=== PATIENT | female | born 1975 | race American Indian/Alaskan Native ===

== ENCOUNTER 2019-12-24 12:18 | Emergency (ER) | payer MEDICARE, MEDICAID, OTHER, SELFPAY ==
[2019-12-24 12:24] VITALS: BP 114/73; PULSE 84; RESP 15; TEMP 36.7; O2SAT 100; BMI 32.1
--- NOTE | 2019-12-24 13:12 | ED_ITS ---
HPI - Ear Problem <KADIE Noland - Last Filed: 12/24/19 13:28> General Chief complaint: Ear Stated complaint: ears are draining Time Seen by Provider: 12/24/19 12:45 Source: patient Mode of arrival: Ambulatory Limitations: no limitations History of Present Illness HPI Narrative: This is a 44 year female, nonsmoker, who presents to ED with chief complain of bilateral ear drainage and discomfort for last 4 days. Patient denies using Q-tips regularly but has been using after she experienced ear bloody ear drainage. Patient denies going into swimming pool or into water recently. Patient denies fever, chills, nausea or vomiting, history of diabetes or immunocompromise. Patient reports cold symptoms about a month ago with improvement. Patient reports decrease hearing. Patient reports throbbing bilateral ear discomfort with lymph nodes discomfort near bilateral years and cervical area. Related Data Previous Rx's Medication Instructions Recorded [id number] 4 drop EAR-BOTH Q6H 10 Days #10 ml 12/24/19 Allergies Allergy/AdvReac Type Severity Reaction Status Date / Time No Known Drug Allergies Allergy Verified 12/24/19 12:24 Review of Systems <KADIE Noland - Last Filed: 12/24/19 13:28> Review of Systems Narrative: General: Denies fever, chills, fatigue, malaise, sweats. HEENT: See HPI Respiratory: Denies dyspnea, cough, wheezing, hemoptysis, sputum. Cardiovascular: Denies chest pain, palpitations, orthopnea, edema. Gastrointestinal: Denies nausea, vomiting, abdominal pain, diarrhea, constipation, melena. : Denies dysuria, frequency, incontinence, hematuria, urinary retention. Musculoskeletal: Denies weakness, joint pain or bony pain. Skin: Denies rash, skin lesions, or other. Neurologic: Denies weakness, headache, numbness, change in speech, confusion, seizures, incoordination. Psychiatric: No concerning psychosocial issues. 12-point review of systems is negative except for those stated above. Patient History <KADIE Noland - Last Filed: 12/24/19 13:28> Medical History No significant past medical history (Acute) Surgical History No pertinent past surgical history (Acute) Social History Smoking Status: Never smoker Smoking Status: Never smoker Exam <KADIE Noland - Last Filed: 12/24/19 13:28> Narrative Exam Narrative: General appearance: well developed, well nourished, in no acute distress. Head: normocephalic, atraumatic, no scalp lesions, non-tender. ENT: Bilateral auditory canals with erythema, edema, serosanguineous drainage and tympanic membranes clear. Hearing grossly intact. Nose without bleeding, purulent discharge, septal hematoma or deviation. Turbinate without erythema or swelling. Facial sinuses nontender to palpate. Mucous membrane moist, no mucosal lesion. Throat without erythema, tonsillar hypertrophy or exudate. Uvula in midline, airway patent. Neck/Thyroid: neck supple, full range of motion, no visible masses or meningeal signs. No JVD, tender to palpate near bilateral tragus, anterior and posterior cervical lymph nodes. Skin: no suspicious rashes, lesions over visible areas. Warm and dry and appropriate color for ethnicity. Heart: no clubbing, no cyanosis, no edema. S1 and S2 normal. RRR w/o murmurs, clicks, or bruits. Lungs: Breathing even and unlabored. No stridor. No accessory muscles used. Able to speak in full sentences. Chest: normal shape and expansion. Abdomen: non-obese, non-distended. Neurologic: alert and oriented. Cognitive exam, UNEMPLOYMENT SPECIALIST and PNS grossly intact on informal exam. Psych: good eye contact, normal affect. Initial Vital Signs Initial Vital Signs: Vital Signs Temperature 98.1 F 12/24/19 12:24 Pulse Rate 84 12/24/19 12:24 Respiratory Rate 15 12/24/19 12:24 Blood Pressure 114/73 12/24/19 12:24 Pulse Oximetry 100 12/24/19 12:24 <Shivam Wilson DO - Last Filed: 12/24/19 14:18> Initial Vital Signs Initial Vital Signs: Vital Signs Temperature 98.1 F 12/24/19 12:24 Pulse Rate 84 12/24/19 12:24 Respiratory Rate 15 12/24/19 12:24 Blood Pressure 114/73 12/24/19 12:24 Pulse Oximetry 100 12/24/19 12:24 Scores <KADIE Noland - Last Filed: 12/24/19 13:28> GCS [place] coma scale eye opening: Spontaneous [place] coma scale verbal response: Orientated [place] coma scale motor response: Obey commands [place] coma scale total score: 15 Course <KADIE Noland - Last Filed: 12/24/19 13:28> Vital Signs Vital signs: Vital Signs - 8 hr 12/24/19 12:24 Temperature 98.1 F Pulse Rate 84 Respiratory Rate 15 Blood Pressure 114/73 Pulse Oximetry 100 <Shivam Wilson DO - Last Filed: 12/24/19 14:18> Vital Signs Vital signs: Vital Signs - 8 hr 12/24/19 12:24 Temperature 98.1 F Pulse Rate 84 Respiratory Rate 15 Blood Pressure 114/73 Pulse Oximetry 100 Medical Decision Making <KADIE Noland - Last Filed: 12/24/19 13:28> Differential Diagnosis Differential Diagnosis: Otitis media, otitis externa, URI Medical Records Medical records reviewed: Yes I reviewed the patient's medical records. MDM Narrative Medical decision making narrative: Patient has bilateral ear physical exam is consistent with otitis externa. TM is intact without obvious signs of infection at this time. Patient advised not to use Q-tips to clean her ears. Patient discharged to home with Cortisporin ear drops and advised to use 4 drops into each ear up to 4 times a day for next 10 days. Patient advised to follow-up with PCP next couple of days for re-evaluation and return precautions were discussed with the patient. Patient verbalized understanding and agrees with the treatment plan. Discharge Plan Departure Patient Disposition: Home Clinical Impression: Otitis externa Qualifiers: Otitis externa type: unspecified type Chronicity: acute Laterality: bilateral Qualified Code(s): H60.503 - Unspecified acute noninfective otitis externa, bilateral Discharge Date/Time: 12/24/19 13:40 Instructions: DI for Otitis Externa Activity Restrictions/Additional Instructions: You have been diagnosed with [bilateral otitis externa.]. What to do: *Take your medications as directed. Please start using ear drops today as soon as you receive this medication from the pharmacy. Four drops in each ear 4 times a day for next 10 days. You can use [id number]-kxa-jfmdzcu Tylenol and or ibuprofen as needed for discomfort. Please keep your ears dry while you're treating for ear infection. This medication has been transmitted to [facility]. *Follow up with your primary care provider in 2-3 days, call for an appointment. Please contact previous Dr. Ceron office. Let them know you were seen in the ED and that we asked you to be seen in follow up. *Return to ED if you have any new, worsening, or concerning symptoms, such as [fever, worsening pain, drainage, chest pain, breathing difficulty, unable to tolerate fluids, hearing difficulty or any acute concerns]. Prescriptions: New zzdjrnto-rxatjnttz-JQ 3.5-10,000-1 mg/mL-unit/mL-% drops,suspension 4 drop EAR-BOTH Q6H 10 Days Qty: 10 RF: 0 <Shivam Wilson, DO - Last Filed: 12/24/19 14:18> Sign Out Provider Sign Out Attestation: Dr Wilson Co-Sign Statement: I was available for consultation during this patient's emergency department visit. This chart is signed by myself for administrative purposes only. I did not have direct contact with this patient during this visit. They were seen independently by the APC.
== END 2019-12-24 13:40 | disposition home or self-care (01) ==
PROVIDERS: Emergency Provider Nurse Practitioner Family
DX: H60.503 Unspecified acute noninfective otitis externa, bilateral (principal)
CPT/HCPCS: 99281; 99283

== ENCOUNTER 2019-12-25 16:00 | Emergency (ER) | payer MEDICARE, MEDICAID, OTHER, SELFPAY ==
[2019-12-25 16:12] VITALS: BP 135/71; PULSE 98; RESP 15; TEMP 36.8; O2SAT 99
--- NOTE | 2019-12-25 17:14 | PC.NURSE ---
report was sick for a month, ear congestion yesterday, today with drainage. denies fever at home, denies vomiting. awaiting for pending disposition.
--- NOTE | 2019-12-25 22:30 | ED.EAR ---
HPI - Ear Problem <KADIE Noland - Last Filed: 12/25/19 22:44> General Chief complaint: Ear Stated complaint: Both Ears Pain Time Seen by Provider: 12/25/19 16:29 Source: patient Mode of arrival: Ambulatory Limitations: no limitations History of Present Illness HPI Narrative: This is a 44 year female, occasional smoker, who presents to ED with worsening bilateral ear pain since her visit to ED yesterday. Patient was diagnosed with otitis externa in bilateral years and discharged to home with Cortisporin ear drops yesterday. Patient reports she has used about 5 doses before coming into ED. patient reports she has been using Tylenol and Motrin for discomfort and last dose was around noon and hearing has not been improving as well. Patient reports her current pain is 9/10. Patient denies fever, chills, nausea or vomiting. Patient denies history of diabetes or immunocompromised. Patient denies recent ear infection prior her visit to ED yesterday. Denies visiting to swimming pool. Related Data Previous Rx's Medication Instructions Recorded [id number] 4 drop EAR-BOTH Q6H 10 Days #10 ml 12/24/19 amoxicillin-pot clavulanate 1 tab PO BID #20 tab 12/25/19 [Augmentin] Allergies Allergy/AdvReac Type Severity Reaction Status Date / Time No Known Drug Allergies Allergy Verified 12/25/19 16:15 Review of Systems <KADIE Noland - Last Filed: 12/25/19 22:44> Review of Systems Narrative: General: Denies fever, chills, fatigue, malaise, sweats. HEENT: See HPI Respiratory: Denies dyspnea, cough, wheezing, hemoptysis, sputum. Cardiovascular: Denies chest pain, palpitations, orthopnea, edema. Gastrointestinal: Denies nausea, vomiting, abdominal pain, diarrhea, constipation, melena. Skin: Denies rash, skin lesions, or other. Neurologic: Denies weakness, headache, numbness, change in speech, confusion, seizures, incoordination. Patient History <KADIE Noland - Last Filed: 12/25/19 22:44> Medical History No significant past medical history (Acute) Surgical History No pertinent past surgical history (Acute) Social History Smoking Status: Current some day smoker Smoking Status: Current some day smoker tobacco type: cigarettes alcohol intake frequency: 0-2 drinks per day Substance Use Type: does not use Exam <KADIE Noland - Last Filed: 12/25/19 22:44> Narrative Exam Narrative: General appearance: well developed, well nourished, in no acute distress. Head: normocephalic, atraumatic, no scalp lesions, non-tender. ENT: Bilateral auditory canals with purulent discharge worse in right ear with erythematous canal. Tympanic membrane redness and dull appearance worsen right-side. Hearing grossly intact. Nose without bleeding, purulent discharge, septal hematoma or deviation. Turbinate without erythema or swelling. Facial sinuses nontender to palpate. Mucous membrane moist, no mucosal lesion. Throat without erythema, tonsillar hypertrophy or exudate. Uvula in midline, airway patent. Neck/Thyroid: neck supple, full range of motion, no visible masses or meningeal signs. No JVD, non-tender without lymphadenopathy, no significant tenderness to palpate bilateral tragus. Skin: no suspicious rashes, lesions over visible areas. Warm and dry and appropriate color for ethnicity. Heart: no clubbing, no cyanosis, no edema. Lungs: Breathing even and unlabored. No stridor. No accessory muscles used. Able to speak in full sentences. Chest: normal shape and expansion. Abdomen: non-obese, non-distended. Neurologic: alert and oriented. Cognitive exam, CLINICAL NURSE LEADER and PNS grossly intact on informal exam. Psych: good eye contact, normal affect. Initial Vital Signs Initial Vital Signs: Vital Signs Temperature 98.2 F 12/25/19 16:12 Pulse Rate 98 H 12/25/19 16:12 Respiratory Rate 15 12/25/19 16:12 Blood Pressure 135/71 12/25/19 16:12 Pulse Oximetry 99 12/25/19 16:12 <Shivam Wilson DO - Last Filed: 12/26/19 06:58> Initial Vital Signs Initial Vital Signs: Vital Signs Temperature 98.2 F 12/25/19 16:12 Pulse Rate 98 H 12/25/19 16:12 Respiratory Rate 15 12/25/19 16:12 Blood Pressure 135/71 12/25/19 16:12 Pulse Oximetry 99 12/25/19 16:12 Scores <KADIE Noland - Last Filed: 12/25/19 22:44> GCS [place] coma scale eye opening: Spontaneous [place] coma scale verbal response: Orientated [place] coma scale motor response: Obey commands [place] coma scale total score: 15 Course <BRITTANY NolandP - Last Filed: 12/25/19 22:44> Vital Signs Vital signs: Vital Signs - 8 hr 12/25/19 16:12 Temperature 98.2 F Pulse Rate 98 H Respiratory Rate 15 Blood Pressure 135/71 Pulse Oximetry 99 <Shivam Wilson DO - Last Filed: 12/26/19 06:58> Vital Signs Vital signs: Vital Signs - 8 hr 12/25/19 16:12 Temperature 98.2 F Pulse Rate 98 H Respiratory Rate 15 Blood Pressure 135/71 Pulse Oximetry 99 Medical Decision Making <KADIE Noland - Last Filed: 12/25/19 22:44> Differential Diagnosis Differential Diagnosis: Otitis media, otitis externa, malignant otitis externa Medical Records Medical records reviewed: Yes I reviewed the patient's medical records. Lab Data Lab results reviewed: Yes I reviewed the patient's lab results. Labs: Point of Care Testing Glucose POC 98 Point of care testing: Point of Care Testing Glucose POC 98 MDM Narrative Medical decision making narrative: Patient was diagnosed with otitis externa yesterday and return to ED today with increasing ear pain and not improving hearing after she had used to 5 times Corticosporin ear drops. Your exam is consistent with otitis externa with purulent discharge and erythema without significant swelling. Tympanic membrane also appears to be erythema and dull in appearance. Patient advised continue use ear drops and oral antibiotic medication, Augmentin, has been added for 10 day course. Patient advised to follow-up with PCP and ENT specialist if symptoms persist and return precautions were discussed with the patient. Patient verbalized understanding and agrees with the treatment plan. Patient also advised to use enkz-azh-fktfogo Tylenol and or Motrin as needed for discomfort. <Shivam Wilson DO - Last Filed: 12/26/19 06:58> Lab Data Labs: Point of Care Testing Glucose POC 98 Point of care testing: Point of Care Testing Glucose POC 98 Discharge Plan Departure Patient Disposition: Home Clinical Impression: Otitis externa Qualifiers: Otitis externa type: unspecified type Chronicity: acute Laterality: bilateral Qualified Code(s): H60.503 - Unspecified acute noninfective otitis externa, bilateral Otitis media Qualifiers: Otitis media type: unspecified Chronicity: acute Qualified Code(s): H66.90 - Otitis media, unspecified, unspecified ear Discharge Date/Time: 12/25/19 17:37 Activity Restrictions/Additional Instructions: You have been diagnosed with [otitis media and otitis externa. Right ear is worse than left side. Your blood glucose test was normal.]. What to do: *Take your medications as directed. Please start taking Augmentin twice a day for next 10 days. Continue to take Tylenol and or Motrin as needed for discomfort and the ear drops. Please avoid water entering to ear canal during the treatment. Augmentin has been transmitted to [facility]. *Follow up with your primary care provider in 2-3 days, call for an appointment. Let them know you were seen in the ED and that we asked you to be seen in follow up. *Return to ED if you have any new, worsening, or concerning symptoms, such as [worsening pain, increasing drainage, pain, fever, redness spreading to face/jaw. Chest pain, breathing difficulty or any acute concerns.]. Prescriptions: New amoxicillin-pot clavulanate [Augmentin] 875-125 mg tablet 1 tab PO BID Qty: 20 RF: 0 No Action [id number]-[id number] 3.5-10,000-1 mg/mL-unit/mL-% drops,suspension 4 drop EAR-BOTH Q6H 10 Days Qty: 10 RF: 0 <Shivam Wilson DO - Last Filed: 12/26/19 06:58> Sign Out Provider Sign Out Attestation: Dr Wilson Co-Sign Statement: I was available for consultation during this patient's emergency department visit. This chart is signed by myself for administrative purposes only. I did not have direct contact with this patient during this visit. They were seen independently by the APC.
== END 2019-12-25 17:37 | disposition home or self-care (01) ==
PROVIDERS: Emergency Provider Nurse Practitioner Family
DX: H60.503 Unspecified acute noninfective otitis externa, bilateral (principal); H66.90 Otitis media, unspecified, unspecified ear
CPT/HCPCS: 82962; 99281; 99283

== ENCOUNTER 2022-05-06 17:21 | Emergency (ER) | payer MEDICARE, MEDICAID, OTHER, SELFPAY ==
[2022-05-06] VITALS (13 sets, daily range): BP systolic 108–148; BP diastolic 53–74; PULSE 75–103; RESP 11–25; TEMP 36.8; O2SAT 94–99
[2022-05-06] MEDS: ONDANSETRON 4 MG/2 ML INJ IV (17:55)
[2022-05-06 18:07] LABS: Add Manual Diff / Slide Review NO; Basophils Absolute Auto 100 /uL (0-100); Eosinophils Absolute Auto 100 /uL (0-450); Eosinophils Percent Auto 1.4 % (2-4); Hematocrit 32.7 % (36-46); Hemoglobin 10.7 g/dL (12.0-16.0); Lymphocytes Absolute Auto 1300 /uL (1100-4500); Lymphocytes Percent Auto 14.3 % (25-40); Mean Corpuscular HGB Conc 32.8 % (30-36); Mean Corpuscular Hemoglobin 27.2 PG (26-34); Mean Corpuscular Volume 82.9 fL (80-100); Monocytes Absolute Auto 500 /uL (0-900); Monocytes Percent Auto 5.6 % (3-14); Neutrophils Absolute Auto 7200 /uL (1500-7000); Neutrophils Percent Auto 77.7 % (50-75); Platelet Count 414 X10^3/uL (150-400); Red Blood Cell Count 3.94 X10^6/uL (4.0-5.2); Red Cell Distribution Width 15.8 % (11.6-14.8); White Blood Cell Count 9.3 X10^3/uL (4.5-11.0)
[2022-05-06 18:09] LABS: Alanine Aminotransferase 25 IU/L (<35); Albumin 4.8 g/dL (3.5-5.0); Albumin Globulin Ratio 1.2 (1.0-2.8); Alkaline Phosphatase 115 U/L (38-126); Aspartate Aminotransferase 53 IU/L (14-36); BUN Creatinine Ratio 9.1 (6-22); Bilirubin Total 0.4 mg/dL (0.2-1.3); Blood Urea Nitrogen 13 mg/dL (7-17); Calcium 8.7 mg/dL (8.4-10.2); Carbon Dioxide 29 mmol/L (22-32); Chloride 106 mmol/L (98-107); Estimated Glomerular Filt Rate 45 mL/min (>60); Ethanol (ETOH) < 10 mg/dL; Globulin 3.9 g/dL (1.7-4.1); Glucose 161 mg/dL (70-100); HEMOLYSIS < 15 (0-50); Lipase 120 U/L (23-300); Potassium 3.5 mmol/L (3.4-5.1); Sodium 145 mmol/L (137-145); Total Protein 8.7 g/dL (6.3-8.2)
[2022-05-06 18:30] LABS: Pregnancy Test Serum,Qual Negative (Negative)
--- NOTE | 2022-05-06 18:34 | ED.SYNCOPE ---
HPI - Syncope <Rios Guallpa MD - Last Filed: 05/13/22 05:14> General Chief Complaint: Syncope Stated Complaint: Syncope Time Seen by Provider: 05/06/22 17:38 Source: patient and family Mode of arrival: Ambulatory History of Present Illness HPI narrative: Patient brought in by ambulance for episode of syncope. Daughter is at bedside. Patient states feeling much better now. Patient denies any chest pain palpitations headache. No dyspnea. 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 She was out care from 1:45 p.m. until about 5:00 p.m.. She states she was drinking water. Was not sweating. She came inside the house to use the bathroom. She sat down on the commode. She felt lightheaded. Denied any palpitations chest pain headache or any pain or discomfort. She states she must have fell asleep. Her family was knocking at the bathroom door. She was able to get up and still felt a little lightheaded and answer the door. EMS then was called. Please see EMS run sheet for vitals/data. Patient denies any history of heart attack strokes or diabetes. Denies any drug use or alcohol abuse. She is awake alert oriented x4. Clear speech. Has not had any IV fluids, IV fluids from EMS still hanging on full but not flowing. Denies any fall or injury from syncopal episode. Never had this happen before. Patient denies any chest pain or dyspnea during yd work. No recent illness fever chills cough cold congestion nausea vomiting diarrhea or any fluid loss. No urinary complaints. No bloody or black stools recently. No history of cardiac arrhythmia. No history of seizures. Patient was not postictal. She was awake alert oriented x4 when she was was awoken by family in the bathroom Related Data Previous Rx's Medication Instructions Recorded amoxicillin 875 mg-potassium 1 tab PO BID #20 tabs 12/25/19 clavulanate 125 mg tablet (Augmentin) ofloxacin 0.3 % ear drops 10 drop otic (ear) DAILY 7 days #5 12/28/19 mL cephalexin 500 mg capsule 500 mg PO BID 5 days #10 caps 05/11/22 Allergies Allergy/AdvReac Type Severity Reaction Status Date / Time No Known Drug Allergies Allergy Verified 05/06/22 17:29 Review of Systems <Rios Guallpa MD - Last Filed: 05/13/22 05:14> Review of Systems Narrative: GENERAL: Denies chills, fatigue, malaise, fever, sweats. HEENT: Denies sinus pain, ear pain, sore throat RESPIRATORY: Denies dyspnea, cough CARDIOVASCULAR: Denies chest pain, palpitations GASTROINTESTINAL: Denies nausea, vomiting, abdominal pain : Denies dysuria, frequency, hematuria MUSCULOSKELETAL: denies muscle or bony pain SKIN: Denies rash, skin lesions NEUROLOGIC: Denies weakness, numbness, positive for dizziness/syncope ROS Unobtainable: All systems reviewed & are unremarkable except as noted in HPI and below Patient History <Rios Guallpa MD - Last Filed: 05/13/22 05:14> Medical History (Updated 05/06/22 @ 22:27 by Rios Guallpa MD) No significant past medical history Surgical History No pertinent past surgical history Social History Smoking Status: Current some day smoker Smoking Status: Current some day smoker tobacco type: cigarettes alcohol intake frequency: 0-2 drinks per day Substance Use Type: former substance user Exam <Rios Guallpa MD - Last Filed: 05/13/22 05:14> Narrative Exam Narrative: GENERAL: in no distress, not toxic not dyspneic HEAD: Normocephalic. EYES: Pupils equal round No scleral icterus. ENT: Mucous membranes moist. NECK: Trachea midline. CARDIOVASCULAR: Regular rate and rhythm without murmurs RESPIRATORY: Clear to auscultation. Breath sounds equal bilaterally. No wheezes, rales, or rhonchi. 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 Normal external rectal exam. No blood or black stool on glove. Hemoccult negative. EXTREMITIES: No gross deformities. BACK: No flank tenderness. NEURO: AOx4. Clear speech no facial droop light touch intact to bilateral face hands with strong equal cloud developer. Negative pronator drift. SKIN: Warm and dry PSYCH: Not anxious, is cooperative Initial Vital Signs Initial Vital Signs: Vital Signs Temperature 98.2 F 05/06/22 17:27 Pulse Rate 99 H 05/06/22 17:27 Respiratory Rate 16 05/06/22 17:27 Blood Pressure 137/72 05/06/22 17:27 Pulse Oximetry 99 05/06/22 17:27 Oxygen Delivery Method 05/06/22 17:27 <Kenyatta Brody DO - Last Filed: 05/11/22 19:10> Initial Vital Signs Initial Vital Signs: Vital Signs Temperature 98.2 F 05/06/22 17:27 Pulse Rate 99 H 05/06/22 17:27 Respiratory Rate 16 05/06/22 17:27 Blood Pressure 137/72 05/06/22 17:27 Pulse Oximetry 99 05/06/22 17:27 Oxygen Delivery Method 05/06/22 17:27 Course <Rios Guallpa MD - Last Filed: 05/13/22 05:14> Course Course Narrative: No new issues during course of stay Orders Ordered: Discontinued Medications Diphenhydramine HCl (Diphenhydramine 50 Mg/Ml Vial) 12.5 mg IV NOW ONE Stop: 05/06/22 21:13 Last Admin: 05/06/22 21:15 Dose: 12.5 mg Documented By: AT Sodium Chloride (Normal Saline 0.9%) 1,000 mls @ 1,000 mls/hr IV BOLUS ONE Stop: 05/06/22 19:32 Last Infusion: 05/06/22 20:48 Dose: 0 mls/hr Documented By: Admin: 05/06/22 19:17 Dose: 1,000 mls/hr Documented By: AT Sodium Chloride (Normal Saline 0.9%) 1,000 mls @ 1,000 mls/hr IV BOLUS ONE Stop: 05/06/22 21:51 Last Infusion: 05/06/22 22:35 Dose: 0 mls/hr Documented By: Admin: 05/06/22 20:59 Dose: 1,000 mls/hr Documented By: AT Methylprednisolone (Methylprednisolone 125 Mg/2 Ml Vial) 125 mg IV NOW ONE Stop: 05/06/22 21:13 Last Admin: 05/06/22 21:15 Dose: 125 mg Documented By: AT Ondansetron HCl (Ondansetron 4 Mg/2 Ml Inj) 4 mg IV NOW ONE Stop: 05/06/22 17:50 Last Admin: 05/06/22 17:55 Dose: 4 mg Documented By: RLS Reevaluation(s) Reevaluation #1: Reviewed results with patient and family. Patient feeling much better after IV fluids and Zofran. Had 2 L of normal saline. Otherwise laboratory studies/urinalysis does show some signs of dehydration. May have caused her syncopal episode. Return precautions reviewed with them. They desire discharge home Time: 22:23 Vital Signs Vital signs: Vital Signs - 8 hr 05/06/22 17:27 05/06/22 18:55 05/06/22 18:00 Temperature 98.2 F Pulse Rate 99 H 89 Pulse Rate [Orthostatic Lying] 102 H Pulse Rate [Orthostatic Sitting] 99 H Pulse Rate [Orthostatic Standing] 103 H Respiratory Rate 16 18 Blood Pressure 137/72 129/74 Blood Pressure [Orthostatic Lying] 148/73 H Blood Pressure [Orthostatic Sitting] 142/69 H Blood Pressure [Orthostatic Standing] 137/63 Pulse Oximetry 99 99 Oxygen Delivery Method Room Air Room Air 05/06/22 18:56 05/06/22 19:00 05/06/22 19:00 Temperature Pulse Rate 86 87 Pulse Rate [Orthostatic Lying] Pulse Rate [Orthostatic Sitting] Pulse Rate [Orthostatic Standing] Respiratory Rate 16 Blood Pressure 132/65 Blood Pressure [Orthostatic Lying] Blood Pressure [Orthostatic Sitting] Blood Pressure [Orthostatic Standing] Pulse Oximetry 96 94 Oxygen Delivery Method 05/06/22 19:30 05/06/22 19:30 05/06/22 20:00 Temperature Pulse Rate 79 Pulse Rate [Orthostatic Lying] Pulse Rate [Orthostatic Sitting] Pulse Rate [Orthostatic Standing] Respiratory Rate 11 L Blood Pressure 108/54 L 115/55 L Blood Pressure [Orthostatic Lying] Blood Pressure [Orthostatic Sitting] Blood Pressure [Orthostatic Standing] Pulse Oximetry 95 Oxygen Delivery Method 05/06/22 20:00 05/06/22 20:30 05/06/22 20:30 Temperature Pulse Rate 75 81 Pulse Rate [Orthostatic Lying] Pulse Rate [Orthostatic Sitting] Pulse Rate [Orthostatic Standing] Respiratory Rate 13 14 Blood Pressure 112/53 L Blood Pressure [Orthostatic Lying] Blood Pressure [Orthostatic Sitting] Blood Pressure [Orthostatic Standing] Pulse Oximetry 97 96 Oxygen Delivery Method 05/06/22 21:00 05/06/22 21:00 05/06/22 21:30 Temperature Pulse Rate 91 H 101 H Pulse Rate [Orthostatic Lying] Pulse Rate [Orthostatic Sitting] Pulse Rate [Orthostatic Standing] Respiratory Rate 24 Blood Pressure 131/71 Blood Pressure [Orthostatic Lying] Blood Pressure [Orthostatic Sitting] Blood Pressure [Orthostatic Standing] Pulse Oximetry 96 97 Oxygen Delivery Method Room Air Room Air 05/06/22 21:31 05/06/22 21:31 05/06/22 22:00 Temperature Pulse Rate 86 Pulse Rate [Orthostatic Lying] Pulse Rate [Orthostatic Sitting] Pulse Rate [Orthostatic Standing] Respiratory Rate 15 Blood Pressure 124/56 L 130/63 Blood Pressure [Orthostatic Lying] Blood Pressure [Orthostatic Sitting] Blood Pressure [Orthostatic Standing] Pulse Oximetry 96 Oxygen Delivery Method 05/06/22 22:00 Temperature Pulse Rate 84 Pulse Rate [Orthostatic Lying] Pulse Rate [Orthostatic Sitting] Pulse Rate [Orthostatic Standing] Respiratory Rate 11 L Blood Pressure Blood Pressure [Orthostatic Lying] Blood Pressure [Orthostatic Sitting] Blood Pressure [Orthostatic Standing] Pulse Oximetry 96 Oxygen Delivery Method Room Air <Kenyatta Brody DO - Last Filed: 05/11/22 19:10> Orders Ordered: Discontinued Medications Diphenhydramine HCl (Diphenhydramine 50 Mg/Ml Vial) 12.5 mg IV NOW ONE Stop: 05/06/22 21:13 Last Admin: 05/06/22 21:15 Dose: 12.5 mg Documented By: AT Sodium Chloride (Normal Saline 0.9%) 1,000 mls @ 1,000 mls/hr IV BOLUS ONE Stop: 05/06/22 19:32 Last Infusion: 05/06/22 20:48 Dose: 0 mls/hr Documented By: Admin: 05/06/22 19:17 Dose: 1,000 mls/hr Documented By: AT Sodium Chloride (Normal Saline 0.9%) 1,000 mls @ 1,000 mls/hr IV BOLUS ONE Stop: 05/06/22 21:51 Last Infusion: 05/06/22 22:35 Dose: 0 mls/hr Documented By: Admin: 05/06/22 20:59 Dose: 1,000 mls/hr Documented By: AT Methylprednisolone (Methylprednisolone 125 Mg/2 Ml Vial) 125 mg IV NOW ONE Stop: 05/06/22 21:13 Last Admin: 05/06/22 21:15 Dose: 125 mg Documented By: AT Ondansetron HCl (Ondansetron 4 Mg/2 Ml Inj) 4 mg IV NOW ONE Stop: 05/06/22 17:50 Last Admin: 05/06/22 17:55 Dose: 4 mg Documented By: RLS Vital Signs Vital signs: Vital Signs - 8 hr 05/06/22 17:27 05/06/22 18:55 05/06/22 18:00 Temperature 98.2 F Pulse Rate 99 H 89 Pulse Rate [Orthostatic Lying] 102 H Pulse Rate [Orthostatic Sitting] 99 H Pulse Rate [Orthostatic Standing] 103 H Respiratory Rate 16 18 Blood Pressure 137/72 129/74 Blood Pressure [Orthostatic Lying] 148/73 H Blood Pressure [Orthostatic Sitting] 142/69 H Blood Pressure [Orthostatic Standing] 137/63 Pulse Oximetry 99 99 Oxygen Delivery Method Room Air Room Air 05/06/22 18:56 05/06/22 19:00 05/06/22 19:00 Temperature Pulse Rate 86 87 Pulse Rate [Orthostatic Lying] Pulse Rate [Orthostatic Sitting] Pulse Rate [Orthostatic Standing] Respiratory Rate 16 Blood Pressure 132/65 Blood Pressure [Orthostatic Lying] Blood Pressure [Orthostatic Sitting] Blood Pressure [Orthostatic Standing] Pulse Oximetry 96 94 Oxygen Delivery Method 05/06/22 19:30 05/06/22 19:30 05/06/22 20:00 Temperature Pulse Rate 79 Pulse Rate [Orthostatic Lying] Pulse Rate [Orthostatic Sitting] Pulse Rate [Orthostatic Standing] Respiratory Rate 11 L Blood Pressure 108/54 L 115/55 L Blood Pressure [Orthostatic Lying] Blood Pressure [Orthostatic Sitting] Blood Pressure [Orthostatic Standing] Pulse Oximetry 95 Oxygen Delivery Method 05/06/22 20:00 05/06/22 20:30 05/06/22 20:30 Temperature Pulse Rate 75 81 Pulse Rate [Orthostatic Lying] Pulse Rate [Orthostatic Sitting] Pulse Rate [Orthostatic Standing] Respiratory Rate 13 14 Blood Pressure 112/53 L Blood Pressure [Orthostatic Lying] Blood Pressure [Orthostatic Sitting] Blood Pressure [Orthostatic Standing] Pulse Oximetry 97 96 Oxygen Delivery Method 05/06/22 21:00 05/06/22 21:00 05/06/22 21:30 Temperature Pulse Rate 91 H 101 H Pulse Rate [Orthostatic Lying] Pulse Rate [Orthostatic Sitting] Pulse Rate [Orthostatic Standing] Respiratory Rate 24 Blood Pressure 131/71 Blood Pressure [Orthostatic Lying] Blood Pressure [Orthostatic Sitting] Blood Pressure [Orthostatic Standing] Pulse Oximetry 96 97 Oxygen Delivery Method Room Air Room Air 05/06/22 21:31 05/06/22 21:31 05/06/22 22:00 Temperature Pulse Rate 86 Pulse Rate [Orthostatic Lying] Pulse Rate [Orthostatic Sitting] Pulse Rate [Orthostatic Standing] Respiratory Rate 15 Blood Pressure 124/56 L 130/63 Blood Pressure [Orthostatic Lying] Blood Pressure [Orthostatic Sitting] Blood Pressure [Orthostatic Standing] Pulse Oximetry 96 Oxygen Delivery Method 05/06/22 22:00 Temperature Pulse Rate 84 Pulse Rate [Orthostatic Lying] Pulse Rate [Orthostatic Sitting] Pulse Rate [Orthostatic Standing] Respiratory Rate 11 L Blood Pressure Blood Pressure [Orthostatic Lying] Blood Pressure [Orthostatic Sitting] Blood Pressure [Orthostatic Standing] Pulse Oximetry 96 Oxygen Delivery Method Room Air MDM - Syncope <Rios Guallpa MD - Last Filed: 05/13/22 05:14> Differential Diagnosis Differential diagnosis: Likely syncope due to orthostatic hypotension, vasovagal syncope, complete atrioventricular block, subarachnoid hemorrhage, pulmonary embolism and dehydration Lab Data Result diagrams: 05/06/22 17:24 05/06/22 17:24 Labs: Lab Results 05/06/22 05/06/22 05/06/22 Range/Units 17:24 17:24 17:24 WBC 9.3 (4.5-11.0) X10^3/uL RBC 3.94 L (4.0-5.2) X10^6/uL Hgb 10.7 L (12.0-16.0) g/dL Hct 32.7 L (36-46) % MCV 82.9 (80-100) fL MCH 27.2 (26-34) PG MCHC 32.8 (30-36) % RDW 15.8 H (11.6-14.8) % Plt Count 414 H (150-400) X10^3/uL Neut % (Auto) 77.7 H (50-75) % Lymph % (Auto) 14.3 L (25-40) % Dyer % (Auto) 5.6 (3-14) % Eos % (Auto) 1.4 L (2-4) % Baso % (Auto) 1.0 (0-2) % Neut # (Auto) 7200 H (1185-8258) /uL Lymph # (Auto) 1300 (3258-5775) /uL Dyer # (Auto) 500 (0-900) /uL Eos # (Auto) 100 (0-450) /uL Baso # (Auto) 100 (0-100) /uL D-Dimer (<230) ng/mL Sodium 145 (137-145) mmol/L Potassium 3.5 (3.4-5.1) mmol/L Chloride 106 (98-107) mmol/L Carbon Dioxide 29 (22-32) mmol/L BUN 13 (7-17) mg/dL Creatinine 1.43 H (0.52-1.04) mg/dL Estimated GFR 45 L (>60) mL/min BUN/Creatinine Ratio 9.1 (6-22) Glucose 161 H (70-100) mg/dL Calcium 8.7 (8.4-10.2) mg/dL Total Bilirubin 0.4 (0.2-1.3) mg/dL AST 53 H (14-36) IU/L ALT 25 (<35) IU/L Alkaline Phosphatase 115 (38-126) U/L Total Creatine Kinase (30-135) U/L CK-MB (CK-2) (<2.37) ng/mL CK-MB (CK-2) Rel Index (1.5-5.0) % Troponin I (0.01-0.034) ng/mL Total Protein 8.7 H (6.3-8.2) g/dL Albumin 4.8 (3.5-5.0) g/dL Globulin 3.9 (1.7-4.1) g/dL Albumin/Globulin Ratio 1.2 (1.0-2.8) Lipase 120 (23-300) U/L Serum , Qual Negative (Negative) Urine Color Urine Appearance Urine pH (4.5-8.0) Ur Specific [place] (1.000-1.035) Urine Protein (Negative) Urine Glucose (UA) (Negative) g/dL Urine Ketones (NEGATIVE) Urine Occult Blood (Negative) Urine Nitrate (Negative) Urine Bilirubin (NEGATIVE) Urine Urobilinogen (0.2) E.U./dL Ur Leukocyte Esterase (NEGATIVE) Urine RBC (0-5/HPF) Urine WBC (0-5/HPF) Ur Squamous Epith Cells (0-5/HPF) Amorphous Sediment Urine Bacteria (None) Hyaline Casts (None) Urine Mucus (Negative) Ur Culture Indicated? U Opiates 300ng/mL cut (Negative) Ur Oxycodone Screen (Negative) Urine Methadone Screen (Negative) Ur Barbiturates Screen (Negative) U Tricyclic Antidepress (Negative) Ur Phencyclidine Scrn (Negative) Ur Amphetamines Screen (Negative) U Methamphetamines Scrn (Negative) Ur MDMA Scrn (Ecstasy) (Negative) U Benzodiazepines Scrn (Negative) Urine Cocaine Screen (Negative) U Marijuana (THC) Screen (Negative) Ethyl Alcohol < 10 ( - 10) mg/dL 05/06/22 05/06/22 05/06/22 Range/Units 17:24 17:24 18:59 WBC (4.5-11.0) X10^3/uL RBC (4.0-5.2) X10^6/uL Hgb (12.0-16.0) g/dL Hct (36-46) % MCV (80-100) fL MCH (26-34) PG MCHC (30-36) % RDW (11.6-14.8) % Plt Count (150-400) X10^3/uL Neut % (Auto) (50-75) % Lymph % (Auto) (25-40) % Dyer % (Auto) (3-14) % Eos % (Auto) (2-4) % Baso % (Auto) (0-2) % Neut # (Auto) (9415-3171) /uL Lymph # (Auto) (8022-9907) /uL Dyer # (Auto) (0-900) /uL Eos # (Auto) (0-450) /uL Baso # (Auto) (0-100) /uL D-Dimer 265 H (<230) ng/mL Sodium (137-145) mmol/L Potassium (3.4-5.1) mmol/L Chloride (98-107) mmol/L Carbon Dioxide (22-32) mmol/L BUN (7-17) mg/dL Creatinine (0.52-1.04) mg/dL Estimated GFR (>60) mL/min BUN/Creatinine Ratio (6-22) Glucose (70-100) mg/dL Calcium (8.4-10.2) mg/dL Total Bilirubin (0.2-1.3) mg/dL AST (14-36) IU/L ALT (<35) IU/L Alkaline Phosphatase (38-126) U/L Total Creatine Kinase 137 H (30-135) U/L CK-MB (CK-2) 0.69 (<2.37) ng/mL CK-MB (CK-2) Rel Index 0.5 L (1.5-5.0) % Troponin I < 0.012 (0.01-0.034) ng/mL Total Protein (6.3-8.2) g/dL Albumin (3.5-5.0) g/dL Globulin (1.7-4.1) g/dL Albumin/Globulin Ratio (1.0-2.8) Lipase (23-300) U/L Serum , Qual (Negative) Urine Color Yellow Urine Appearance Sl cloudy Urine pH 5.0 (4.5-8.0) Ur Specific [place] >=1.030 H (1.000-1.035) Urine Protein 1+ H (Negative) Urine Glucose (UA) Negative (Negative) g/dL Urine Ketones Negative (NEGATIVE) Urine Occult Blood 1+ H (Negative) Urine Nitrate Negative (Negative) Urine Bilirubin Negative (NEGATIVE) Urine Urobilinogen 0.2 (0.2) E.U./dL Ur Leukocyte Esterase 1+ H (NEGATIVE) Urine RBC 1-5/hpf (0-5/HPF) Urine WBC 10-30/hpf H (0-5/HPF) Ur Squamous Epith Cells 1-5 /hpf (0-5/HPF) Amorphous Sediment 1+ Urine Bacteria Moderate (10-30) H (None) Hyaline Casts 1-5/lpf (None) Urine Mucus 2+ H (Negative) Ur Culture Indicated? Specimen cultured U Opiates 300ng/mL cut (Negative) Ur Oxycodone Screen (Negative) Urine Methadone Screen (Negative) Ur Barbiturates Screen (Negative) U Tricyclic Antidepress (Negative) Ur Phencyclidine Scrn (Negative) Ur Amphetamines Screen (Negative) U Methamphetamines Scrn (Negative) Ur MDMA Scrn (Ecstasy) (Negative) U Benzodiazepines Scrn (Negative) Urine Cocaine Screen (Negative) U Marijuana (THC) Screen (Negative) Ethyl Alcohol ( - 10) mg/dL 05/06/22 Range/Units 18:59 WBC (4.5-11.0) X10^3/uL RBC (4.0-5.2) X10^6/uL Hgb (12.0-16.0) g/dL Hct (36-46) % MCV (80-100) fL MCH (26-34) PG MCHC (30-36) % RDW (11.6-14.8) % Plt Count (150-400) X10^3/uL Neut % (Auto) (50-75) % Lymph % (Auto) (25-40) % Dyer % (Auto) (3-14) % Eos % (Auto) (2-4) % Baso % (Auto) (0-2) % Neut # (Auto) (5162-7849) /uL Lymph # (Auto) (7504-0052) /uL Dyer # (Auto) (0-900) /uL Eos # (Auto) (0-450) /uL Baso # (Auto) (0-100) /uL D-Dimer (<230) ng/mL Sodium (137-145) mmol/L Potassium (3.4-5.1) mmol/L Chloride (98-107) mmol/L Carbon Dioxide (22-32) mmol/L BUN (7-17) mg/dL Creatinine (0.52-1.04) mg/dL Estimated GFR (>60) mL/min BUN/Creatinine Ratio (6-22) Glucose (70-100) mg/dL Calcium (8.4-10.2) mg/dL Total Bilirubin (0.2-1.3) mg/dL AST (14-36) IU/L ALT (<35) IU/L Alkaline Phosphatase (38-126) U/L Total Creatine Kinase (30-135) U/L CK-MB (CK-2) (<2.37) ng/mL CK-MB (CK-2) Rel Index (1.5-5.0) % Troponin I (0.01-0.034) ng/mL Total Protein (6.3-8.2) g/dL Albumin (3.5-5.0) g/dL Globulin (1.7-4.1) g/dL Albumin/Globulin Ratio (1.0-2.8) Lipase (23-300) U/L Serum , Qual (Negative) Urine Color Urine Appearance Urine pH (4.5-8.0) Ur Specific [place] (1.000-1.035) Urine Protein (Negative) Urine Glucose (UA) (Negative) g/dL Urine Ketones (NEGATIVE) Urine Occult Blood (Negative) Urine Nitrate (Negative) Urine Bilirubin (NEGATIVE) Urine Urobilinogen (0.2) E.U./dL Ur Leukocyte Esterase (NEGATIVE) Urine RBC (0-5/HPF) Urine WBC (0-5/HPF) Ur Squamous Epith Cells (0-5/HPF) Amorphous Sediment Urine Bacteria (None) Hyaline Casts (None) Urine Mucus (Negative) Ur Culture Indicated? U Opiates 300ng/mL cut Negative (Negative) Ur Oxycodone Screen Negative (Negative) Urine Methadone Screen Negative (Negative) Ur Barbiturates Screen Negative (Negative) U Tricyclic Antidepress Negative (Negative) Ur Phencyclidine Scrn Negative (Negative) Ur Amphetamines Screen Negative (Negative) U Methamphetamines Scrn Negative (Negative) Ur MDMA Scrn (Ecstasy) Negative (Negative) U Benzodiazepines Scrn Negative (Negative) Urine Cocaine Screen Negative (Negative) U Marijuana (THC) Screen Negative (Negative) Ethyl Alcohol ( - 10) mg/dL Imaging Data CT scan - chest: Radiologist's Impression: [place] [address] CT Scan Report Signed Patient: Jackie Crespo MR#: [id number] : 1975 Acct:[id number] Age/Sex: 46 / F Date of Service: 05/06/22 Loc: ED Accession Number: [id number] ?? Procedure: CT angio chest PE protocol Ordering Provider: Rios Guallpa MD PROCEDURE:? CT ANGIO CHEST PE PROTOCOL ? INDICATIONS:? Syncope ? TECHNIQUE:? After the administration of intravenous contrast, 2 mm thick sections acquired from the pulmonary apices to the posterior costophrenic angles.? 3-dimensional maximum intensity projection (MIP) coronal and sagittal reformats were then acquired through the thorax.? For radiation dose reduction, the following was used:? automated exposure control, adjustment of mA and/or kV according to patient size.? ? COMPARISON:? None. ? FINDINGS:? Image quality:? Excellent.? ? Pulmonary arteries:? Evaluation is limited by suboptimal contrast opacification of the pulmonary arteries, with nondiagnostic evaluation in the bilateral lower lobes, right middle lobe and, and left lingula.? No filling defects within the main, lobar, or upper lobe pulmonary arteries. ? Lungs and pleura:? There is mild dependent atelectasis bilaterally.? In the left lower lobe, there is a 0.5 cm pulmonary nodule on series 5, image 208. A 0.3 cm left lower lobe nodules also present on series 5, image 223. In the right lower lobe, there is a lateral nodule measuring 0.5 cm on series 5, image 211. A 0.3 cm right middle lobe nodule is present along the minor fissure on series 5, image 149.? No pleural effusions or pneumothorax.? Central and peripheral airways are patent.? ? Mediastinum:? Heart size is normal, without pericardial effusion.? No mediastinal or hilar adenopathy.? Thoracic aorta is normal in caliber and enhancement.? Esophagus is normal in caliber, with a small hiatal hernia.? ? Bones and chest wall:? No suspicious bony lesions.? Ribs and thoracic spine appear intact throughout.? Thyroid gland demonstrates no discrete nodules.? No axillary or supraclavicular adenopathy.? ? Abdomen:? Visualized upper abdomen demonstrates a small hypodense focus within the right hepatic dome which is too small to characterize but likely represents a cyst. ? IMPRESSION:? ? 1. Suboptimal contrast opacification of the pulmonary arteries markedly limiting evaluation for pulmonary embolism within the lung bases.? No evidence of central or upper lobe pulmonary embolism. ? 2. No acute airspace consolidation. ? 3. Small hiatal hernia. ? 4. Small bilateral pulmonary nodules.? If patient is at high risk for malignancy, a follow-up CT may be performed in 12 months to demonstrate stability.? ? ? Dictated by: Jatinder Johnson M.D. on 05/06/2022 at 21:56 ? ? Approved by: Jatinder Johnson M.D. on 05/06/2022 at 22:08 ? ECG Data Interpretation: Normal sinus rhythm rate [address] elevation or depression MDM Narrative Medical decision making narrative: Appropriate for discharge home. Exam and laboratory studies and imaging are reassuring. Patient likely did have some features of dehydration causing her syncopal episode. Informed patient no driving operating machinery to seen by family doctor for re-evaluation. Patient and family agree with treatment plan. They desired discharge home. Return precautions reviewed with them <Kenyatta Brody, DO - Last Filed: 05/11/22 19:10> Lab Data Labs: Lab Results 05/06/22 05/06/22 05/06/22 Range/Units 17:24 17:24 17:24 WBC 9.3 (4.5-11.0) X10^3/uL RBC 3.94 L (4.0-5.2) X10^6/uL Hgb 10.7 L (12.0-16.0) g/dL Hct 32.7 L (36-46) % MCV 82.9 (80-100) fL MCH 27.2 (26-34) PG MCHC 32.8 (30-36) % RDW 15.8 H (11.6-14.8) % Plt Count 414 H (150-400) X10^3/uL Neut % (Auto) 77.7 H (50-75) % Lymph % (Auto) 14.3 L (25-40) % [place] % (Auto) 5.6 (3-14) % Eos % (Auto) 1.4 L (2-4) % Baso % (Auto) 1.0 (0-2) % Neut # (Auto) 7200 H (8903-7936) /uL Lymph # (Auto) 1300 (0728-8302) /uL [place]yer # (Auto) 500 (0-900) /uL Eos # (Auto) 100 (0-450) /uL Baso # (Auto) 100 (0-100) /uL D-Dimer (<230) ng/mL Sodium 145 (137-145) mmol/L Potassium 3.5 (3.4-5.1) mmol/L Chloride 106 (98-107) mmol/L Carbon Dioxide 29 (22-32) mmol/L BUN 13 (7-17) mg/dL Creatinine 1.43 H (0.52-1.04) mg/dL Estimated GFR 45 L (>60) mL/min BUN/Creatinine Ratio 9.1 (6-22) Glucose 161 H (70-100) mg/dL Calcium 8.7 (8.4-10.2) mg/dL Total Bilirubin 0.4 (0.2-1.3) mg/dL AST 53 H (14-36) IU/L ALT 25 (<35) IU/L Alkaline Phosphatase 115 (38-126) U/L Total Creatine Kinase (30-135) U/L CK-MB (CK-2) (<2.37) ng/mL CK-MB (CK-2) Rel Index (1.5-5.0) % Troponin I (0.01-0.034) ng/mL Total Protein 8.7 H (6.3-8.2) g/dL Albumin 4.8 (3.5-5.0) g/dL Globulin 3.9 (1.7-4.1) g/dL Albumin/Globulin Ratio 1.2 (1.0-2.8) Lipase 120 (23-300) U/L Serum , Qual Negative (Negative) Urine Color Urine Appearance Urine pH (4.5-8.0) Ur Specific [place] (1.000-1.035) Urine Protein (Negative) Urine Glucose (UA) (Negative) g/dL Urine Ketones (NEGATIVE) Urine Occult Blood (Negative) Urine Nitrate (Negative) Urine Bilirubin (NEGATIVE) Urine Urobilinogen (0.2) E.U./dL Ur Leukocyte Esterase (NEGATIVE) Urine RBC (0-5/HPF) Urine WBC (0-5/HPF) Ur Squamous Epith Cells (0-5/HPF) Amorphous Sediment Urine Bacteria (None) Hyaline Casts (None) Urine Mucus (Negative) Ur Culture Indicated? U Opiates 300ng/mL cut (Negative) Ur Oxycodone Screen (Negative) Urine Methadone Screen (Negative) Ur Barbiturates Screen (Negative) U Tricyclic Antidepress (Negative) Ur Phencyclidine Scrn (Negative) Ur Amphetamines Screen (Negative) U Methamphetamines Scrn (Negative) Ur MDMA Scrn (Ecstasy) (Negative) U Benzodiazepines Scrn (Negative) Urine Cocaine Screen (Negative) U Marijuana (THC) Screen (Negative) Ethyl Alcohol < 10 ( - 10) mg/dL 05/06/22 05/06/22 05/06/22 Range/Units 17:24 17:24 18:59 WBC (4.5-11.0) X10^3/uL RBC (4.0-5.2) X10^6/uL Hgb (12.0-16.0) g/dL Hct (36-46) % MCV (80-100) fL MCH (26-34) PG MCHC (30-36) % RDW (11.6-14.8) % Plt Count (150-400) X10^3/uL Neut % (Auto) (50-75) % Lymph % (Auto) (25-40) % [place]yer % (Auto) (3-14) % Eos % (Auto) (2-4) % Baso % (Auto) (0-2) % Neut # (Auto) (6432-6272) /uL Lymph # (Auto) (9039-1111) /uL Dyer # (Auto) (0-900) /uL Eos # (Auto) (0-450) /uL Baso # (Auto) (0-100) /uL D-Dimer 265 H (<230) ng/mL Sodium (137-145) mmol/L Potassium (3.4-5.1) mmol/L Chloride (98-107) mmol/L Carbon Dioxide (22-32) mmol/L BUN (7-17) mg/dL Creatinine (0.52-1.04) mg/dL Estimated GFR (>60) mL/min BUN/Creatinine Ratio (6-22) Glucose (70-100) mg/dL Calcium (8.4-10.2) mg/dL Total Bilirubin (0.2-1.3) mg/dL AST (14-36) IU/L ALT (<35) IU/L Alkaline Phosphatase (38-126) U/L Total Creatine Kinase 137 H (30-135) U/L CK-MB (CK-2) 0.69 (<2.37) ng/mL CK-MB (CK-2) Rel Index 0.5 L (1.5-5.0) % Troponin I < 0.012 (0.01-0.034) ng/mL Total Protein (6.3-8.2) g/dL Albumin (3.5-5.0) g/dL Globulin (1.7-4.1) g/dL Albumin/Globulin Ratio (1.0-2.8) Lipase (23-300) U/L Serum , Qual (Negative) Urine Color Yellow Urine Appearance Sl cloudy Urine pH 5.0 (4.5-8.0) Ur Specific [place] >=1.030 H (1.000-1.035) Urine Protein 1+ H (Negative) Urine Glucose (UA) Negative (Negative) g/dL Urine Ketones Negative (NEGATIVE) Urine Occult Blood 1+ H (Negative) Urine Nitrate Negative (Negative) Urine Bilirubin Negative (NEGATIVE) Urine Urobilinogen 0.2 (0.2) E.U./dL Ur Leukocyte Esterase 1+ H (NEGATIVE) Urine RBC 1-5/hpf (0-5/HPF) Urine WBC 10-30/hpf H (0-5/HPF) Ur Squamous Epith Cells 1-5 /hpf (0-5/HPF) Amorphous Sediment 1+ Urine Bacteria Moderate (10-30) H (None) Hyaline Casts 1-5/lpf (None) Urine Mucus 2+ H (Negative) Ur Culture Indicated? Specimen cultured U Opiates 300ng/mL cut (Negative) Ur Oxycodone Screen (Negative) Urine Methadone Screen (Negative) Ur Barbiturates Screen (Negative) U Tricyclic Antidepress (Negative) Ur Phencyclidine Scrn (Negative) Ur Amphetamines Screen (Negative) U Methamphetamines Scrn (Negative) Ur MDMA Scrn (Ecstasy) (Negative) U Benzodiazepines Scrn (Negative) Urine Cocaine Screen (Negative) U Marijuana (THC) Screen (Negative) Ethyl Alcohol ( - 10) mg/dL 05/06/22 Range/Units 18:59 WBC (4.5-11.0) X10^3/uL RBC (4.0-5.2) X10^6/uL Hgb (12.0-16.0) g/dL Hct (36-46) % MCV (80-100) fL MCH (26-34) PG MCHC (30-36) % RDW (11.6-14.8) % Plt Count (150-400) X10^3/uL Neut % (Auto) (50-75) % Lymph % (Auto) (25-40) % Dyer % (Auto) (3-14) % Eos % (Auto) (2-4) % Baso % (Auto) (0-2) % Neut # (Auto) (0029-6106) /uL Lymph # (Auto) (3471-2872) /uL Dyer # (Auto) (0-900) /uL Eos # (Auto) (0-450) /uL Baso # (Auto) (0-100) /uL D-Dimer (<230) ng/mL Sodium (137-145) mmol/L Potassium (3.4-5.1) mmol/L Chloride (98-107) mmol/L Carbon Dioxide (22-32) mmol/L BUN (7-17) mg/dL Creatinine (0.52-1.04) mg/dL Estimated GFR (>60) mL/min BUN/Creatinine Ratio (6-22) Glucose (70-100) mg/dL Calcium (8.4-10.2) mg/dL Total Bilirubin (0.2-1.3) mg/dL AST (14-36) IU/L ALT (<35) IU/L Alkaline Phosphatase (38-126) U/L Total Creatine Kinase (30-135) U/L CK-MB (CK-2) (<2.37) ng/mL CK-MB (CK-2) Rel Index (1.5-5.0) % Troponin I (0.01-0.034) ng/mL Total Protein (6.3-8.2) g/dL Albumin (3.5-5.0) g/dL Globulin (1.7-4.1) g/dL Albumin/Globulin Ratio (1.0-2.8) Lipase (23-300) U/L Serum , Qual (Negative) Urine Color Urine Appearance Urine pH (4.5-8.0) Ur Specific [place] (1.000-1.035) Urine Protein (Negative) Urine Glucose (UA) (Negative) g/dL Urine Ketones (NEGATIVE) Urine Occult Blood (Negative) Urine Nitrate (Negative) Urine Bilirubin (NEGATIVE) Urine Urobilinogen (0.2) E.U./dL Ur Leukocyte Esterase (NEGATIVE) Urine RBC (0-5/HPF) Urine WBC (0-5/HPF) Ur Squamous Epith Cells (0-5/HPF) Amorphous Sediment Urine Bacteria (None) Hyaline Casts (None) Urine Mucus (Negative) Ur Culture Indicated? U Opiates 300ng/mL cut Negative (Negative) Ur Oxycodone Screen Negative (Negative) Urine Methadone Screen Negative (Negative) Ur Barbiturates Screen Negative (Negative) U Tricyclic Antidepress Negative (Negative) Ur Phencyclidine Scrn Negative (Negative) Ur Amphetamines Screen Negative (Negative) U Methamphetamines Scrn Negative (Negative) Ur MDMA Scrn (Ecstasy) Negative (Negative) U Benzodiazepines Scrn Negative (Negative) Urine Cocaine Screen Negative (Negative) U Marijuana (THC) Screen Negative (Negative) Ethyl Alcohol ( - 10) mg/dL MDM Narrative Medical decision making narrative: Appropriate for discharge home. Exam and laboratory studies and imaging are reassuring. Patient likely did have some features of dehydration causing her syncopal episode. Informed patient no driving operating machinery to seen by family doctor for re-evaluation. Patient and family agree with treatment plan. They desired discharge home. Return precautions reviewed with them SHAKA-patient never seen by me culture returns positive for E coli no prescription is sent is pansensitive. Keflex twice daily for 5 days is sent in to [place] [facility] pharmacy of choice Discharge Plan Departure Patient Disposition: Home Clinical Impression: Vasovagal syncope Instructions: DI for Syncope in Adults (Fainting) Activity Restrictions/Additional Instructions: Keep well hydrated. Return if worse if any questions or concerns. No driving or operating machinery until you see your family doctor for re-evaluation. You may continue home medications. Today's laboratory studies and tests have been reassuring. You have likely had heat exposure causing your symptoms of fainting. Be sure to drink plenty of fluids when you are out in the heat Prescriptions: New cephalexin 500 mg capsule 500 mg PO BID 5 Days Qty: 10 0RF No Action ofloxacin 0.3 % drops 10 drop otic (ear) DAILY 7 Days Qty: 5 2RF amoxicillin-pot clavulanate [Augmentin] 875-125 mg tablet 1 tab PO BID Qty: 20 0RF Visit Report Forms: Patient Portal/API
[2022-05-06 18:47] LABS: Creatine Kinase 137 U/L (30-135)
[2022-05-06 19:00] LABS: Troponin I < 0.012 ng/mL (0.01-0.034)
[2022-05-06 19:01] LABS: D Dimer 265 ng/mL (<230)
[2022-05-06 19:02] LABS: CKMB % Relative Index 0.5 % (1.5-5.0); Creatine Kinase MB 0.69 ng/mL (<2.37)
[2022-05-06 19:07] LABS: Appearance Urine UA SL CLOUDY; Bilirubin Urine UA NEGATIVE (NEGATIVE); Color Urine UA YELLOW; Glucose Urine UA NEGATIVE (Negative); Ketones Urine UA NEGATIVE (NEGATIVE); Leukocyte Esterase Urine UA 1+ (NEGATIVE); Nitrite Urine UA NEGATIVE (Negative); Occult Blood Urine UA 1+ (Negative); Protein Urine UA 1+ (Negative); Specific Gravity Urine UA >=1.030 (1.000-1.035); Urobilinogen Urine UA 0.2 E.U./dL (0.2)
[2022-05-06 19:11] LABS: UR Morphine/Opiate cutoff 300 Negative (Negative); Ur Creatinine Normal (Normal); Ur Specific Gravity Normal (Normal); Urine Amphetamines Negative (Negative); Urine Barbiturates Negative (Negative); Urine Benzodiazepines Negative (Negative); Urine Cocaine Negative (Negative); Urine MDMA Negative (Negative); Urine Methadone Negative (Negative); Urine Methamphetamines Negative (Negative); Urine Oxycodone Negative (Negative); Urine Phencyclidine Negative (Negative); Urine Tetrahydrocannabinol Negative (Negative); Urine Tricyclic Antidepressant Negative (Negative); Urine pH Normal (Normal)
[2022-05-06 19:17] LABS: Amorphous Sediment Urine 1+; RBC Urine 1-5/HPF (0-5/HPF); Squamous Epithelial Cell Urine 1-5 /HPF (0-5/HPF); WBC Urine 10-30/HPF (0-5/HPF)
[2022-05-06] MEDS: SODIUM CHLORIDE 0.9% 1,000 ML 1000 ML IV ×2 (19:17→20:59)
[2022-05-06 19:18] LABS: Bacteria Urine Moderate (10-30); Culture Indicated Urine Specimen Cultured; Hyaline Casts Urine 1-5/LPF; Mucus Urine 2+ (Negative)
--- NOTE | 2022-05-06 20:52 | DI.CT.S_ITS ---
PROCEDURE: CT ANGIO CHEST PE PROTOCOL INDICATIONS: Syncope TECHNIQUE: After the administration of intravenous contrast, 2 mm thick sections acquired from the pulmonary apices to the posterior costophrenic angles. 3-dimensional maximum intensity projection (MIP) coronal and sagittal reformats were then acquired through the thorax. For radiation dose reduction, the following was used: automated exposure control, adjustment of mA and/or kV according to patient size. COMPARISON: None. FINDINGS: Image quality: Excellent. Pulmonary arteries: Evaluation is limited by suboptimal contrast opacification of the pulmonary arteries, with nondiagnostic evaluation in the bilateral lower lobes, right middle lobe and, and left lingula. No filling defects within the main, lobar, or upper lobe pulmonary arteries. Lungs and pleura: There is mild dependent atelectasis bilaterally. In the left lower lobe, there is a 0.5 cm pulmonary nodule on series 5, image 208. A 0.3 cm left lower lobe nodules also present on series 5, image 223. In the right lower lobe, there is a lateral nodule measuring 0.5 cm on series 5, image 211. A 0.3 cm right middle lobe nodule is present along the minor fissure on series 5, image 149. No pleural effusions or pneumothorax. Central and peripheral airways are patent. Mediastinum: Heart size is normal, without pericardial effusion. No mediastinal or hilar adenopathy. Thoracic aorta is normal in caliber and enhancement. Esophagus is normal in caliber, with a small hiatal hernia. Bones and chest wall: No suspicious bony lesions. Ribs and thoracic spine appear intact throughout. Thyroid gland demonstrates no discrete nodules. No axillary or supraclavicular adenopathy. Abdomen: Visualized upper abdomen demonstrates a small hypodense focus within the right hepatic dome which is too small to characterize but likely represents a cyst. IMPRESSION: 1. Suboptimal contrast opacification of the pulmonary arteries markedly limiting evaluation for pulmonary embolism within the lung bases. No evidence of central or upper lobe pulmonary embolism. 2. No acute airspace consolidation. 3. Small hiatal hernia. 4. Small bilateral pulmonary nodules. If patient is at high risk for malignancy, a follow-up CT may be performed in 12 months to demonstrate stability. Dictated by: Jatinder Johnson M.D. on 05/06/2022 at 21:56 Approved by: Jatinder Johnson M.D. on 05/06/2022 at 22:08
[2022-05-06] MEDS: diphenhydrAMINE 50 MG/ML VIAL 12.5 MG IV (21:15)
[2022-05-06] MEDS: methylPREDNISolone 125 MG/2 ML VIAL IV (21:15)
== END 2022-05-06 22:40 | disposition home or self-care (01) ==
PROVIDERS: Emergency Medicine; Emergency Provider Emergency Medicine
DX: R55 Syncope and collapse (principal)
CPT/HCPCS: 71275; 80053; 80305; 80320; 81001; 82550; 82553; 83690; 84484; 84703; 85025; 85379; 87077; 87086; 87186; 93005; 96361; 96374; 96375; 99284; J1200; J2405; J2930; Q9967

== ENCOUNTER 2025-01-19 19:42 | Emergency (ER) | payer MEDICARE, MEDICAID, SELFPAY ==
[2025-01-19 20:02] VITALS: BP 126/72; PULSE 106; RESP 18; TEMP 37.9; O2SAT 97; BMI 27.8
[2025-01-19 20:35] LABS: Strep Grp A by PCR Rapid Negative (Negative)
[2025-01-19 20:53] LABS: Influenza A - CEPHEID Flu A NEGATIVE (NEGATIVE); Influenza B - CEPHEID Flu B POSITIVE (NEGATIVE); Respiratory Syncytial Virus Negative (Negative)
[2025-01-19 21:00] LABS: COVID-19 CEPHEID 4-PLEX PCR Negative (Negative)
[2025-01-20 01:17] VITALS: BP 141/62; PULSE 87; O2SAT 99
--- NOTE | 2025-01-20 01:24 | ED.URI ---
HPI - URI/Sore Throat General Chief Complaint: Upper Respiratory Symptoms Stated Complaint: coughing, sore throat, ANDREWS Time Seen by Provider: 01/20/25 01:11 Source: patient Mode of arrival: Ambulatory History of Present Illness HPI Narrative: 49-year-old female with no known prior of chronic heart or lung problems, complains of cough and sore throat and headache since yesterday, no current antibiotics, 1st visit for this illness. No known recent exposure to persons with documented flu or COVID. Denies vomiting. Denies diarrhea. Denies abdominal discomfort. Denies painful or frequent urination. Denies chest pain or shortness of breath. Related Data Previous Rx's Medication Instructions Recorded amoxicillin 875 mg-potassium 1 tab PO BID #20 tabs 12/25/19 clavulanate 125 mg tablet (Augmentin) ofloxacin 0.3 % ear drops 10 drop otic (ear) DAILY 7 days #5 12/28/19 mL oseltamivir 75 mg capsule (Tamiflu) 75 mg PO BID 5 days #10 caps 01/20/25 Allergies Allergy/AdvReac Type Severity Reaction Status Date / Time tramadol AdvReac Vomiting Verified 01/19/25 20:02 Patient History Medical History (Updated 01/20/25 @ 03:34 by Aren Daigle MD) No significant past medical history Surgical History No pertinent past surgical history Social History Smoking Status: Current some day smoker Smoking Status: Current some day smoker tobacco type: cigarettes alcohol intake frequency: 0-2 drinks per day Exam Narrative Exam Narrative: GENERAL: Well-developed patient, in mild distress. HEAD: Atraumatic. Normocephalic. EYES: Pupils equal round and reactive. Extraocular motions intact. No scleral icterus. No injection or drainage. ENT: Nose without bleeding, purulent drainage. Throat without erythema, tonsillar hypertrophy or exudate. Airway patent. NECK: Trachea midline. Non tender CARDIOVASCULAR: Regular rate and rhythm without murmurs, gallops, or rubs. RESPIRATORY: Clear to auscultation. Breath sounds equal bilaterally. No wheezes, rales, or rhonchi. GASTROINTESTINAL: Abdomen soft, non-tender, nondistended. EXTREMITIES: No edema or joint tenderness. BACK: Nontender without deformity or crepitance. No flank tenderness. NEURO: AOx3. Motor functions grossly nonfocal SKIN: No rash or erythema of visible areas Initial Vital Signs Initial Vital Signs: Vital Signs Temperature 100.3 F H 01/19/25 20:02 Pulse Rate 106 H 01/19/25 20:02 Respiratory Rate 18 01/19/25 20:02 Blood Pressure 126/72 01/19/25 20:02 Pulse Oximetry 97 01/19/25 20:02 Oxygen Delivery Method Room Air 01/19/25 20:02 Course Orders Ordered: Discontinued Medications Ibuprofen (Ibuprofen 400 Mg Tablet) 800 mg PO NOW ONE Stop: 01/20/25 03:27 Last Admin: 01/20/25 03:40 Dose: 800 mg Documented By: Oseltamivir Phosphate (Oseltamivir 75 Mg Capsule) 75 mg PO NOW ONE Stop: 01/20/25 03:27 Last Admin: 01/20/25 03:40 Dose: 75 mg Documented By: Vital Signs Vital signs: Vital Signs - 8 hr 01/19/25 20:02 01/20/25 01:17 01/20/25 01:17 Temperature 100.3 F H Pulse Rate 106 H 87 Respiratory Rate 18 Blood Pressure 126/72 141/62 H Pulse Oximetry 97 99 Oxygen Delivery Method Room Air Room Air MDM - URI/Sore Throat Lab Data Attestation: I reviewed the patient's lab results. Lab results narrative: Strep screen negative. COVID negative, flu type A negative, flu type B positive, RSV negative. Labs: Lab Results 01/19/25 Range/Units 20:08 SARS-CoV-2 (PCR) Negative (Negative) Influenza A (RT-PCR) Flu a negative (NEGATIVE) Influenza B (RT-PCR) Flu b positive H (NEGATIVE) RSV (PCR) Negative (Negative) Group A Strep (PCR) Negative (Negative) MDM Narrative Medical decision making narrative: 49-year-old female with no chronic lung problems complains of cough and headache and muscle aches and sore throat since yesterday. Strep screen sent from triage was negative. Oropharyngeal exam without lesions or redness or exudates. Control secretions well with normal phonation. Moves neck well, symmetrical appearing anterior neck. Lungs clear, normal oxygenation, no respiratory distress. Swab positive for influenza type B, negative for other pathogens tested. We discussed antivirals, patient would like to try, 1st dose of oral Tamiflu given, prescription for 5 day course sent to her pharmacy. Encouraged symptomatic treatment to include plenty of oral fluids, Tylenol as needed for pain or muscle aching. Return precautions. Discharged home with family. Discharge Plan Departure Patient Disposition: Home Clinical Impression: Influenza Instructions: DI for Influenza -- Adult Activity Restrictions/Additional Instructions: Recent cough since yesterday, no oxygen requirement, lungs clear, no respiratory distress. Swab was positive for influenza, negative for COVID and for RSV. You were interested in trying the antiviral medication Tamiflu that could be helpful for influenza illness, if started less than 72 hours, that might shortening the duration of illness, might lessen the severity of illness. 1st dose of Tamiflu medication given in the emergency department, prescription sent for further Tamiflu doses for 5 day course to your pharmacy. Take medications as directed. Take Tylenol and or Motrin as needed for fever or muscle aches or discomfort. Recheck with your regular doctor in the next couple of days. Return to this/nearest emergency department for any change worsening symptoms or any concerns prior. Prescriptions: New oseltamivir [Tamiflu] 75 mg capsule 75 mg PO BID 5 Days Qty: 10 0RF No Action ofloxacin 0.3 % drops 10 drop otic (ear) DAILY 7 Days Qty: 5 2RF amoxicillin-pot clavulanate [Augmentin] 875-125 mg tablet 1 tab PO BID Qty: 20 0RF Referrals: Miscellaneous,Doctor, MD [Primary Care Provider] - Stand Alone Forms: Patient Portal/API/Survey
[2025-01-20 03:40] VITALS: TEMP 37.9
[2025-01-20] MEDS: OSELTAMIVIR 75 MG CAPSULE PO (03:40)
[2025-01-20] MEDS: IBUPROFEN 400 MG TABLET 800 MG PO (03:40)
== END 2025-01-20 03:44 | disposition home or self-care (01) ==
PROVIDERS: Emergency Provider Emergency Medicine
DX: J10.1 Influenza due to other identified influenza virus with other respiratory manifestations (principal)
CPT/HCPCS: 0241U; 87070; 87651; 99283

== ENCOUNTER → 2025-02-12 13:09 | Outpatient (CLI) | payer MEDICARE, SELFPAY ==
--- NOTE | 2025-02-12 13:16 | DI.RAD.S_ITS ---
PROCEDURE: XR FOOT RT MIN 3V INDICATIONS: RIGHT FOOT PAIN TECHNIQUE: 3 views of the foot were acquired. COMPARISON: None. FINDINGS: Bones: Spiral fracture through the 5th metatarsal shaft. First metatarsal bunionectomy. Plantar calcaneal enthesophyte. Soft tissues: No tibiotalar joint effusion. Achilles tendon appears normal. IMPRESSION: Extra-articular, spiral fracture through the 5th metatarsal shaft. Dictated by: Toni Quintero M.D. on 02/12/2025 at 13:28 Approved by: Toni Quintero M.D. on 02/12/2025 at 13:29
== END ==
PROVIDERS: Referring Provider Nurse Practitioner Family; Visit Provider Nurse Practitioner Family
DX: S92.351A Displaced fracture of fifth metatarsal bone, right foot, initial encounter for closed fracture (principal); M79.671 Pain in right foot; M77.31 Calcaneal spur, right foot
CPT/HCPCS: 73630

== ENCOUNTER → 2025-10-30 08:55 | Outpatient (CLI) | payer MEDICARE, OTHER, SELFPAY ==
--- NOTE | 2025-10-30 08:58 | DI.US.S_ITS ---
PROCEDURE: US SOFT TISSUE HEAD AND NECK INDICATIONS: Neck mass TECHNIQUE: Real-time scanning was performed of the neck region of interest, with image documentation. COMPARISON: None. FINDINGS/IMPRESSION: Targeted ultrasound about the right posterior shoulder was obtained. At patient's area of concern, there is a 2.3 x 1.3 x 2.7 cm mildly hypoechoic lesion without internal vascularity in the subcutaneous fat, of unclear etiology. Recommend further evaluation with MRI with intravenous contrast. Dictated by: Domonique Mota M.D. on 10/30/2025 at 12:07 Approved by: Domonique Mota M.D. on 10/30/2025 at 12:09
== END ==
LOC: US 08:57
PROVIDERS: PCP Nurse Practitioner Family; Referring Provider Nurse Practitioner Family; Visit Provider Nurse Practitioner Family
DX: R22.1 Localized swelling, mass and lump, neck (principal)
CPT/HCPCS: 76536

== ENCOUNTER → 2025-11-09 14:15 | Outpatient (CLI) | payer MEDICARE, OTHER, SELFPAY ==
--- NOTE | 2025-11-09 14:19 | DI.MRI.S_ITS ---
PROCEDURE: MR ORBITS FACE NECK WO/W CON INDICATIONS: neck mass TECHNIQUE: Sagittal/axial/coronal T1 spin echo and STIR. After the administration of contrast, axial/coronal/sagittal T1 fast spin echo with fat saturation through the neck. COMPARISON: None. FINDINGS: At the area of concern in the right supraclavicular soft tissues, there is a well-defined ovoid nonenhancing proteinaceous cystic structure measuring 2.5 x 1.7 x 2.0 cm. Unremarkable smooth capsule is present, and the lesion is confined to the subcutaneous fat without invasion of surrounding structures. IMPRESSION: Subcutaneous sebaceous cyst Approved by: Shyam Chapman M.D. on 11/11/2025 at 16:23
== END ==
LOC: MRI 14:16
PROVIDERS: PCP Nurse Practitioner Family; Referring Provider Nurse Practitioner Family; Visit Provider Nurse Practitioner Family
DX: L72.3 Sebaceous cyst (principal); R22.1 Localized swelling, mass and lump, neck
CPT/HCPCS: 70543; A9579